=== PATIENT | male | born 1950 | race Caucasian/White ===

== ENCOUNTER 2020-02-02 11:36 | Emergency (ER) | payer MEDICARE, OTHER ==
[~2020-02-02] VITALS: Ht 177.8 cm; Wt 77.1 kg
--- NOTE | 2020-02-02 12:05 | NUR ---
PT STATES BLOOD IN URINE X1.5 DAYS. PT IS ON [place] SINCE 06/2019. PT STATES SOME RT FLANK PAIN, 2/10 PAIN WELL. PT DENIES OTHER COMPLAINT. AWAITING ERMD ASSESSMENT. URINE COLLECTED.
[2020-02-02 12:35] LABS: BASOPHILS # (AUTO) 0.05 x10^3/uL (0-0.1); BASOPHILS % (AUTO) 1 % (0-1); EOSINOPHILS # (AUTO) 0.16 x10^3/uL (0-0.4); EOSINOPHILS % (AUTO) 2 % (1-7); LYMPHOCYTES % (AUTO) 15 % (22-44); MD NO; MEAN CORPUSCULAR HEMOGLOBIN 31.8 pg (27.5-34.5); MEAN CORPUSCULAR HGB CONC 32.8 g/dL (33.2-36.2); MONOCYTES # (AUTO) 0.75 x10^3/uL (0.2-0.8); MONOCYTES % (AUTO) 9 % (2-9); NEUTROPHILS # (AUTO) 6.65 x10^3/uL (1.8-6.8); NEUTROPHILS % (AUTO) 75 % (42-75); PLATELET COUNT 302 x10^3/uL (130-400); RED BLOOD COUNT 4.24 x10^6/uL (4.38-5.82); RED CELL DISTRIBUTION WIDTH 13.6 % (9.4-14.8)
[2020-02-02 12:45] LABS: ALBUMIN 3.7 g/dL (3.4-5.0); ANION GAP 7 mmol/L (5-15); CALCIUM 8.6 mg/dL (8.5-10.1); CHLORIDE 106 mmol/L (98-107); CREATININE 0.96 mg/dL (0.7-1.3)
--- NOTE | 2020-02-02 12:46 | NUR ---
PT BACK FROM CT, AWAITING ALL RESULTS.
--- NOTE | 2020-02-02 12:57 | NUR ---
RECEIVED REPORT FROM OSVALDO THOMPSON. PT RESTING ON [facility].
[2020-02-02 13:02] LABS: MICROSCOPIC INDICATED
[2020-02-02 14:06] VITALS: BP 101/61
--- NOTE | 2020-02-02 14:06 | NUR ---
PT RESTING ON [place]. NADN. DE [place]. AWARE OF POC FOR DC AND IS AGREEABLE.
== END 2020-02-02 14:21 | disposition home or self-care (01) ==
LOC: ED 12:21
DX: N13.2 Hydronephrosis with renal and ureteral calculous obstruction (principal)
CPT/HCPCS: 36415; 74176; 80048; 81001; 82040; 85025; 87086; 99284